=== PATIENT | male | born 1960 | race Caucasian/White ===

== ENCOUNTER 2019-07-07 07:01 | Inpatient (IN) | payer SELFPAY ==
[2019-07-07 07:36] LABS: #Basophils 0.1 thou/uL (0.0-0.2); #Eosinphils 0.1 thou/uL (0.0-0.7); #Lymphocytes 2.2 thou/uL (1.20-3.40); #Monocytes 0.8 thou/uL (0.11-0.59); #Neutrophils 7.1 thou/uL (1.40-6.50); %Basophils 0.7 % (0.0-1.0); %Eosinophils 0.9 % (0.0-10.0); %Lymphocytes 21.4 % (21.0-51.0); %Monocytes 7.4 % (0.0-10.0); %Neutrophils 69.5 % (42.0-75.0); Hemoglobin 15.1 g/dL (14.0-18.0); Mean Corpuscular HGB CONC 34.2 g/dL (32.0-36.0); Mean Corpuscular Hemoglobin 28.4 pg (27.0-31.0); Mean Platelet Volume 9.8 fL (7.4-10.4); Platelet Count 189 thou/uL (130-400); RBC Distribution Width 13.1 % (11.5-14.5); Red Blood Cell (RBC) Count 5.32 mill/uL (4.70-6.10); White Blood Cell (WBC) Count 10.3 thou/uL (4.8-10.8)
--- NOTE | 2019-07-07 08:38 | CT ---
Head CT without contrast 07/07/2019: Comparison: None HISTORY: Fall, trauma, pain TECHNIQUE: Axial CT imaging at 5 mm intervals from vertex through skull base without contrast FINDINGS: Imaged paranasal sinuses and mastoid air cells are well aerated. There is atherosclerotic c alcification of the cavernous carotid arteries and the distal vertebral arteries. No intracranial hemorrhage, midline shift, mass effect, or ventricular enlargement. No displaced calvarial fracture. IMPRESSION: No acute findings.
[2019-07-07] MEDS ORDERED: Aspirin 325 mg Enteric Coated Tablet PO SCH (09:00)
[2019-07-07 09:16] LABS: Albumin 4.3 g/dL (3.5-5.0)
[2019-07-07 09:17] LABS: Chloride 104 mmol/L (98-107); Potassium 4.5 mmol/L (3.5-5.1); Sodium 134 mmol/L (136-145)
[2019-07-07 09:18] LABS: Calcium 9.9 mg/dL (7.8-10.44); Glucose 300 mg/dL (70-105)
[2019-07-07 09:19] LABS: Protein, Total 7.3 g/dL (6.0-8.3)
--- NOTE | 2019-07-07 09:19 | RAD ---
EXAM: Portable chest PROVIDED CLINICAL HISTORY: Chest pain COMPARISON: 02/27/2011 FINDINGS: Cardiac and mediastinal silhouette is within normal limits. No focal consolidation, pleural fluid or pneumothorax evident. IMPRESSION: No evidence for an acute cardiopulmonary process.
[2019-07-07 09:20] LABS: Anion Gap 14 mmol/L (10-20); Bilirubin, Total 0.5 mg/dL (0.2-1.2); Carbon Dioxide 21 mmol/L (22-29)
[2019-07-07 09:21] LABS: Alkaline Phosphatase 84 U/L (40-110)
[2019-07-07 09:22] LABS: Calc. Creatinine Clearance 0 mL/min (70-130); Estimated GFR-MDRD 66
[2019-07-07 09:23] LABS: BUN (Urea Nitrogen) 24 mg/dL (8.4-25.7)
[2019-07-07 09:24] LABS: ALT (SGPT) 33 U/L (8-55); AST (SGOT) 19 U/L (5-34)
[2019-07-07] MEDS ORDERED: Aspirin Chewable 81 MG TAB ONE (09:50)
--- NOTE | 2019-07-07 10:05 | PDOC.FPRHP ---
- History of Present Illness Chief Complaint: left-sided weakness, falls History of Present Illness: Pt reports he woke up George morning and noticed he had "no control of his left arm or leg." L upper and lower weakness. Today he fell over his toilet and hit his right ribs. No LOC, no lightheadedness. He fell again about 1 hour later in his living room and fell on his right side. Denies speech difference. Feels a "little tired." Lives by himself so falls were unwitnessed. L arm has persistent numbness, tingling for a couple of years now after moving couch w/ his friend. Has not slept for 48 hours. Denies history of stroke. No headache, feels like he has to cough but it hurts his right ribs where he fell. Denies vision changes. Does tell us his last A1C was 12.0. Pt normally takes baby aspirin and says he ran out one week ago. ED Course: attempted to give aspirin but pt choked on water. - Allergies/Adverse Reactions Allergies Allergy/AdvReac Type Severity Reaction Status Date / Time Penicillins Allergy Verified 07/07/19 17:41 - Home Medications Comments: Lisinopril Glyburide Clonidine ? Fluoxetine Melatonin occasionally ASA81 usually reports no statin - History PMHx: DM, HTN, Obesity, Insomnia, Mild depression/anxiety, bilateral carpal tunnel, L eye cataract. PSHx: 2011: appendectomy Cyst cut out of right foot. FHx: Mother dcsd 2 months ago from dementia, DM, [place] w/ CABG Father dcsd of massive heart attack at age 60. Had CABG No children. Social: - lives by self with dog - Smoking: previously 25 yrs ago for less than 1 year. - Chews tobacco, daily since age 13. - Alcohol: occasional, social - Denies illicit drugs PCP: previously [facility], now goes to [facility] due to expense. He is uninsured. - Review of Systems General: reports: fatigue. denies: fever/chills Eyes: denies: eye pain, vision changes Respiratory: reports: cough. denies: shortness of breath Cardiovascular: denies: chest pain, palpitation Gastrointestinal: denies: nausea, vomiting, diarrhea, abdominal pain Genitourinary: denies: dysuria Skin: reports: rashes ("diabetic dermatitis" on LE bilaterally). denies: jaundice Musculoskeletal: reports: pain (ribs right side), swelling (R knee from arthritis), arthritis/arthralgias Neurological: reports: numbness, weakness. denies: syncope, seizure Psychological: reports: anxiety, depression - Vital signs BP: 183/105 HR: 86 RR: 16 Tmax: 98.3 Pox: 98% on RA Wt: 109 kg - Physical Exam Constitutional: NAD, awake, alert and oriented, well developed HEENT: normocephalic and atraumatic, PERRLA, EOMI, conjunctiva clear, no scleral icterus, TM's clear and intact, grossly normal hearing, normal nasal mucosa, MMM, oropharynx clear Heart: RRR, normal S1/S2, no murmurs/rubs/gallops Lungs: CTAB, no respiratory distress Abdomen: soft, non-tender, bowel sounds present Musculoskeletal: normal structure, normal tone Neurological: no focal deficit, CN II-XII intact, normal sensation, other (no facial droop, no aphasia, can understand speech and answer appropriately) -Neurological: Strength in Upper and lower 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 Skin: no rash/lesions Heme/Lymphatic: no unusual bruising or bleeding, no purpura Psychiatric: normal mood and affect, intact recent and remote memory (AxO x4) FMR H&P: Results - Labs Result Diagrams: 07/07/19 07:11 07/07/19 08:56 Lab results: WBC 10.3 thou/uL (4.8-10.8) 07/07/19 07:11 Hgb 15.1 g/dL (14.0-18.0) 07/07/19 07:11 Hct 44.1 % (42.0-52.0) 07/07/19 07:11 MCV 83.0 fL (78.0-98.0) 07/07/19 07:11 Plt Count 189 thou/uL (130-400) 07/07/19 07:11 Neutrophils % 69.5 % (42.0-75.0) 07/07/19 07:11 Sodium 134 mmol/L (136-145) L 07/07/19 08:56 Potassium 4.5 mmol/L (3.5-5.1) 07/07/19 08:56 Chloride 104 mmol/L (98-107) 07/07/19 08:56 Carbon Dioxide 21 mmol/L (22-29) L 07/07/19 08:56 BUN 24 mg/dL (8.4-25.7) 07/07/19 08:56 Creatinine 1.14 mg/dL (0.7-1.3) 07/07/19 08:56 Glucose 300 mg/dL (70-105) H 07/07/19 08:56 Calcium 9.9 mg/dL (7.8-10.44) 07/07/19 08:56 Total Bilirubin 0.5 mg/dL (0.2-1.2) 07/07/19 08:56 AST 19 U/L (5-34) 07/07/19 08:56 ALT 33 U/L (8-55) 07/07/19 08:56 Alkaline Phosphatase 84 U/L (40-110) 07/07/19 08:56 Serum Total Protein 7.3 g/dL (6.0-8.3) 07/07/19 08:56 Albumin 4.3 g/dL (3.5-5.0) 07/07/19 08:56 - EKG Interpretation EKG: NSR, FL 196ms, left axis deviation, left anterior fascicular block - Radiology Interpretation CT scan - head Status: image reviewed by me, report reviewed by me (negative) FMR H&P: A/P - Problem List (1) Tobacco abuse Current Visit: Yes Status: Acute Code(s): Z72.0 - TOBACCO USE (2) CVA (cerebral vascular accident) Current Visit: Yes Status: Acute Code(s): I63.9 - CEREBRAL INFARCTION, UNSPECIFIED (3) HTN (hypertension) Current Visit: Yes Status: Acute Code(s): I10 - ESSENTIAL (PRIMARY) HYPERTENSION (4) Diabetes type 2, uncontrolled Current Visit: Yes Status: Acute Code(s): E11.65 - TYPE 2 DIABETES MELLITUS WITH HYPERGLYCEMIA - Plan 58-yo male admitted for left-sided weakness and fall: CVA - CT head negative, outside window for any immediate therapeutic treatment like tPA since symptoms started Tuesday morning, - MRI ordered and showed olya infarct - PT/OT/speech consulted through Stroke Team - Neuro consulted - ASA81 and statin started - Lipid panel ordered - ECHO ordered T2DM, uncontrolled -A1C = 13. -Started on NPH due to being uninsured: 7U subq BID. -continue humalog sliding scale and hypoglycemia protocol HTN - elevated today, normally takes lisinopril although he does not have his medication list with him - started lisinopril 10mg qhs to control BP. Pt is outside the 24 hr window of permissive HTN. Fall and bruised ribs - CXR neg for fracture, pain control w/ Tylenol Tobacco abuse - chewing tobacco for many years, counseled on cessation Code: DNR-DNI Fluids: none VTE PPx: LVX GI PPx: none Activity ambulate w/ assist, fall precautions Disposition/LOS: Admit to stroke inpatient. LOS > 48H FMR H&P: Upper Level - Plan Date/Time: 07/07/19 1005 Mr. Capone is a 58 yo M with PMH DM, HTN presented to ED via EMS s/p fall on the toilet today. Reports right rib pain from fall. Notes L sided weakness that began yesterday morning. He went about daily activity despite this weakness. Denies CP, SOB. Notes last A1c was 12, on oral medication but patient unsure which ones. Given ASA in ED. No prior TIA/CVA. Current smoker. CXR neg CT brain negative MRI brain: acute R pontine infarction measuring 9x1.5mm EKG NSR, L anterior fascicular block PE Gen: NAD Resp: CTAB, no bruising over ribs Heart: RRR, no murmur Neuro: CN intact. Normal speech. R side 5/5 muscle strength. LUE and LLE 4/5. Sensation intact. A/P Ischemic CVA - Given aspirin in ED - Continue aspirin and start Plavix - Start high intensity statin - Echo pending - PT/OT/speech consulted DM, uncontrolled - Unsure of home meds, will need to pharmacy. Will start metformin if not already taking - A1c 13.1 - Start insulin, since uninsured will start NPH 7 units BID with SSI and titrate as needed HTN - Takes Lisinopril at home, restarted but needs med rec to verify dose - BP elevated in 180s on admission, out of window for permissive HTN TERI vs CKD -GFR of 66, unknown baseline -will monitor on am labs Rib pain - No fractures on CXR, tylenol prn - incentive spirometry Ppx: Lovenox Code: DNR Dispo: Admit to inpatient stroke for further workup. Rehab screen for possible placement. I, Flores Hernandez, have evaluated this patient and agree with findings/plan as outlined by internet marketing strategist resident. Pertinent changes/additions are listed here. Addendum - Attending - Attending Attestation Date/Time: 07/07/19 8660 I personally evaluated the patient and discussed the management with Dr. Knowles /David. I agree with the History, Examination, Assessment and Plan documented above with any addition or exceptions noted below. Patient with history of HTN, DM, and tobacco abuse here with 2 days of L sided weakness, gait instability, and mild slurred speech per family. The patient reports symptoms began upon waking up on the day prior to admission. Reports multiple falls due to his instability. Reports L arm and leg "heaviness" and weakness. Denies headache, vision changes, confusion. He has never had this before. Came in 1 day after symptom onset due to no improvement and continued falls. CT brain showed small vessel disease, and MRI has shown midline pontine infarct. Patient diagnosed with acute ischemic CVA. Will start on ASA and Plavix. Statin therapy. Will need insulin therapy due to his poor glycemic control. Control BP as has been >24 hours since symptom onset. Stroke team and neuro consults. Obtain TTE. Further mgmt per clinical course, hopeful d/c to rehab once stable.
[2019-07-07] MEDS ORDERED: Ondansetron PF 4 MG/2 ML Vial IVP PRN (10:55)
[2019-07-07] MEDS ORDERED: Ondansetron ODT 4 MG TAB PO PRN (10:55)
[2019-07-07] MEDS ORDERED: Dextrose 5% in Water 1,000 ML IV PRN (11:03)
[2019-07-07] MEDS ORDERED: Dextrose 50% Abboject 50 ML SYRINGE SLOW IVP PRN (11:03)
[2019-07-07] MEDS ORDERED: HumaLOG 300 UNITS/3 ML VIAL SC PRN (11:03)
--- NOTE | 2019-07-07 12:05 | MRI ---
Brain MRI without contrast: 07/07/2019 COMPARISON: None HISTORY: Numbness and weakness, assess for acute infarction TECHNIQUE: Multiplanar multisequence MR imaging of the brain obtained without contrast FINDINGS: The regional bone marrow signal intensity appears within normal limits. Arterial flow voids at the axial level of the skull base appear grossly unremarkable on the T2-weight ed imaging. The axial gradient echo imaging demonstrates no evidence for intracranial hemorrhage. Acute infarction noted within the olya centrally and anteriorly to the right of midline measuring up to 9 mm transverse dimension and 1.5 cm AP dimension. Foci of scattered subcentimeter deep and periventricular white matter hyperintensity suggests mild sm all vessel disease. There is increased T2 and FLAIR signal in the area of above-described acute pontine infarction on the right. IMPRESSION: Acute right-sided pontine infarction.
[2019-07-07 12:35] LABS: Hemoglobin A1c 13.1 % (4.0-6.0)
[2019-07-07 12:39] LABS: Cardiac Risk 6.3 (Less than 4.5)
[2019-07-07] MEDS: Enoxaparin Sodium 40 MG/0.4 ML SYRINGE SC SCH (15:33)
[2019-07-07 15:48] VITALS: BMI 32.8
[2019-07-07 16:06] LABS: Prothrombin Time 12.7 SEC (12.0-14.7)
[2019-07-07 16:23] LABS: Troponin I 0.019 ng/mL (< 0.028)
[2019-07-07] MEDS: Acetaminophen 325 MG TAB PO PRN ×2 (17:48→21:29)
[2019-07-07] MEDS: HumaLOG 300 UNITS/3 ML VIAL SC PRN (17:48)
[2019-07-07 19:41] LABS: Troponin I Less than 0.010 ng/mL (< 0.028)
[2019-07-07] MEDS: Lisinopril 10 MG TAB PO SCH (20:25)
[2019-07-07] MEDS: Atorvastatin Calcium 40 MG TAB PO SCH (20:25)
[2019-07-07] MEDS ORDERED: NPH, Human Insulin Isophane 300 UNIT/3 ML VIAL SC SCH (21:00)
[2019-07-07] MEDS ORDERED: Insulin Glargine 14 UNITS in Pre-Filled Syringe 1 EACH SC SCH (21:00)
[2019-07-08 05:16] LABS: #Basophils 0.1 thou/uL (0.0-0.2); #Eosinphils 0.2 thou/uL (0.0-0.7); #Lymphocytes 3.4 thou/uL (1.20-3.40); #Monocytes 0.8 thou/uL (0.11-0.59); #Neutrophils 4.3 thou/uL (1.40-6.50); %Basophils 0.6 % (0.0-1.0); %Lymphocytes 39.1 % (21.0-51.0); %Monocytes 8.8 % (0.0-10.0); %Neutrophils 49.5 % (42.0-75.0); Hemoglobin 14.4 g/dL (14.0-18.0); Mean Corpuscular HGB CONC 33.1 g/dL (32.0-36.0); Mean Corpuscular Hemoglobin 27.4 pg (27.0-31.0); Mean Corpuscular Volume 82.8 fL (78.0-98.0); Mean Platelet Volume 9.1 fL (7.4-10.4); Platelet Count 185 thou/uL (130-400); RBC Distribution Width 13.1 % (11.5-14.5); Red Blood Cell (RBC) Count 5.24 mill/uL (4.70-6.10); White Blood Cell (WBC) Count 8.8 thou/uL (4.8-10.8)
[2019-07-08 05:20] LABS: Anion Gap 13 mmol/L (10-20); BUN (Urea Nitrogen) 20 mg/dL (8.4-25.7); Calc. Creatinine Clearance 123 mL/min (70-130); Calcium 9.3 mg/dL (7.8-10.44); Carbon Dioxide 24 mmol/L (22-29); Chloride 102 mmol/L (98-107); Estimated GFR-MDRD 75; Glucose 231 mg/dL (70-105); Potassium 3.7 mmol/L (3.5-5.1); Sodium 135 mmol/L (136-145)
[2019-07-08] MEDS: Acetaminophen 325 MG TAB PO PRN ×2 (05:45→21:37)
[2019-07-08] MEDS: HumaLOG 300 UNITS/3 ML VIAL SC PRN ×3 (06:03→17:16)
--- NOTE | 2019-07-08 06:27 | PDOC.FM ---
- Subjective Subjective: Pt had headache this AM. Reports pain controlled on Tylenol. Still has inspiratory rib pain where he fell. Complains of shooting pain in his left foot , otherwise has been eating/drinking without problem. States brother can bring his med list in today. - Objective MAR Reviewed: Yes Vital Signs & Weight: Vital Signs (12 hours) Temp Pulse Resp BP Pulse Ox 07/08/19 05:24 96 07/08/19 04:00 97.8 F 75 18 144/86 H 96 07/08/19 00:00 97.3 F L 86 12 125/73 95 07/07/19 20:00 97 07/07/19 19:30 98.7 F 88 13 158/84 H 98 Weight Weight 109.724 kg I&O: 07/06/19 07/07/19 07/08/19 06:59 06:59 06:59 Output Total 350 Balance -350 Result Diagrams: 07/08/19 04:38 07/08/19 04:38 Phys Exam - Physical Examination Constitutional: NAD Respiratory: no wheezing, clear to auscultation bilateral Cardiovascular: RRR, no significant murmur Gastrointestinal: soft, non-tender, no distention, positive bowel sounds Musculoskeletal: no edema, pulses present (left foot appears normal) Psychiatric: normal affect, A&O x 3 Dx/Plan (1) Tobacco abuse Code(s): Z72.0 - TOBACCO USE Status: Acute (2) CVA (cerebral vascular accident) Code(s): I63.9 - CEREBRAL INFARCTION, UNSPECIFIED Status: Acute (3) HTN (hypertension) Code(s): I10 - ESSENTIAL (PRIMARY) HYPERTENSION Status: Acute (4) Diabetes type 2, uncontrolled Code(s): E11.65 - TYPE 2 DIABETES MELLITUS WITH HYPERGLYCEMIA Status: Acute - Plan Plan: 58-yo male admitted for left-sided weakness and fall: CVA, olya infarct. - CT head negative, outside window for any immediate therapeutic treatment like tPA since symptoms started Tuesday morning, - MRI ordered and showed olya infarct - PT/OT/speech consulted through Stroke Team - Neuro consulted - ASA81 and statin started - Lipid panel: high TG, high cholesterol - ECHO ordered T2DM, uncontrolled -A1C = 13. -Started on NPH due to being uninsured: 7U subq BID. -continue humalog sliding scale and hypoglycemia protocol HTN - elevated today, normally takes lisinopril although he does not have his medication list with him - states today he takes lisinopril 20mg BID, but is not really sure. - started lisinopril 10mg qhs to control BP. Pt is outside the 24 hr window of permissive HTN. Fall and bruised ribs - CXR neg for fracture, pain control w/ Tylenol Tobacco abuse - chewing tobacco for many years, counseled on cessation HLD - on statin, high intensity, atorvastatin 40 qhs Code: DNR-DNI Fluids: none VTE PPx: LVX GI PPx: none Activity ambulate w/ assist, fall precautions Disposition/LOS: Admit to stroke inpatient. LOS > 48H Addendum - Attending - Attending Attestation Date/Time: 07/08/19 8030 I personally evaluated the patient and discussed the management with Dr. Knowles. I agree with the History, Examination, Assessment and Plan documented above with any addition or exceptions noted below. Patient here for acute pontine infarct with L sided deficits. Continues HTN and DM control, escalate insulin therapy today. On ASA and Plavix. Neuro on board. Continue therapy services and determine proper dispo.
[2019-07-08] MEDS: Aspirin 81 mg Enteric Coated Tablet PO SCH (08:58)
[2019-07-08] MEDS: Enoxaparin Sodium 40 MG/0.4 ML SYRINGE SC SCH (08:58)
[2019-07-08] MEDS ORDERED: Clopidogrel Bisulfate 75 MG TAB PO SCH (09:00)
[2019-07-08] MEDS: NPH, Human Insulin Isophane 300 UNIT/3 ML VIAL SC SCH ×2 (09:03→21:39)
--- NOTE | 2019-07-08 09:40 | CON ---
DATE OF CONSULTATION: 07/08/2019 CONSULTING PHYSICIAN: [facility]. IMPRESSION: 1. Pontine stroke. 2. Diabetes. PLAN: 1. Restart aspirin. 2. Continue Lipitor 40 mg per day. 3. Carotid ultrasound. 4. Rehab screening. HISTORY OF PRESENT ILLNESS: Mr. Capone is a 58-year-old man with a known history of diabetes. He had been on aspirin daily until about 2 weeks ago, he ran out of medication. He developed acute onset of left-sided clumsiness and numbness. It is not associated with a headache, nausea, vomiting, vertigo, double vision, or alteration of consciousness. Initial CT did not show any bleed. MRI of the brain confirmed a pontine infarct. He has had an echocardiogram done, but the results are pending. He denies any prior stroke symptoms. He has no cardiac history. He uses smokeless tobacco. MEDICATIONS: 1. Glucagon. 2. Insulin. ALLERGIES: PENICILLIN. SOCIAL HISTORY: Smokeless tobacco use. FAMILY HISTORY: Noncontributory. REVIEW OF SYSTEMS: Ten-system review of systems is otherwise negative. PHYSICAL EXAMINATION: VITAL SIGNS: Blood pressure 132/78, pulse 79, respirations 16, and temperature 98. HEENT: Pupils are equal and reactive. Conjunctivae clear. Oropharynx clear. NECK: Supple. EXTREMITIES: No cyanosis, clubbing, or edema. NEUROLOGIC: He is alert and cooperative. His speech was fluent and clear. He has a mild facial droop on the left. There was dysmetria on left to [id number] testing. His physician liaison strength is diminished on the left. He has subjective decreased sensation in the left hand and lower leg. His gait is unsteady. LABORATORY STUDIES: Unremarkable CBC, coags, and chemistry other than blood sugars running in the mid 200s. SUMMARY: A 58-year-old man with a lacunar stroke secondary to underlying diabetes. I would restart aspirin. I do not think Plavix is necessary at this point. I agree with the Lipitor. He will likely need inpatient rehab. Job ID: [id number]
[2019-07-08] MEDS: Lisinopril 10 MG TAB PO SCH (21:37)
[2019-07-08] MEDS: Atorvastatin Calcium 40 MG TAB PO SCH (21:37)
[2019-07-09 05:12] LABS: #Eosinphils 0.2 thou/uL (0.0-0.7); #Lymphocytes 2.8 thou/uL (1.20-3.40); #Monocytes 0.7 thou/uL (0.11-0.59); #Neutrophils 4.4 thou/uL (1.40-6.50); %Basophils 0.6 % (0.0-1.0); %Eosinophils 2.6 % (0.0-10.0); %Lymphocytes 34.3 % (21.0-51.0); %Monocytes 8.6 % (0.0-10.0); Mean Corpuscular HGB CONC 33.9 g/dL (32.0-36.0); Mean Corpuscular Hemoglobin 27.9 pg (27.0-31.0); Mean Corpuscular Volume 82.5 fL (78.0-98.0); Mean Platelet Volume 8.9 fL (7.4-10.4); Platelet Count 177 thou/uL (130-400); RBC Distribution Width 12.9 % (11.5-14.5); Red Blood Cell (RBC) Count 5.01 mill/uL (4.70-6.10); White Blood Cell (WBC) Count 8.2 thou/uL (4.8-10.8)
[2019-07-09 05:32] LABS: Anion Gap 12 mmol/L (10-20); BUN (Urea Nitrogen) 19 mg/dL (8.4-25.7); Calc. Creatinine Clearance 132 mL/min (70-130); Calcium 9.2 mg/dL (7.8-10.44); Carbon Dioxide 21 mmol/L (22-29); Chloride 105 mmol/L (98-107); Estimated GFR-MDRD 81; Glucose 200 mg/dL (70-105); Potassium 3.8 mmol/L (3.5-5.1); Sodium 134 mmol/L (136-145)
--- NOTE | 2019-07-09 05:49 | PDOC.FM ---
- Subjective Subjective: Pt states he feels "the same" as yesterday. He is tired. PT came to work with him yesterday and he says he ambulated in the halls. - Objective MAR Reviewed: Yes Vital Signs & Weight: Vital Signs (12 hours) Temp Pulse Resp BP BP Pulse Ox 07/09/19 04:00 97.7 F 71 16 148/95 H 94 L 07/08/19 23:35 97.9 F 99 16 154/108 H 96 07/08/19 21:37 175/94 H 07/08/19 19:28 99.3 F 77 16 161/92 H 97 Weight Weight 109.724 kg I&O: 07/07/19 07/08/19 07/09/19 06:59 06:59 06:59 Intake Total 1140 Output Total 350 Balance -350 1140 Result Diagrams: 07/09/19 05:02 07/09/19 05:02 Phys Exam - Physical Examination Constitutional: NAD Respiratory: no wheezing, clear to auscultation bilateral Cardiovascular: RRR, no significant murmur Musculoskeletal: no edema Dx/Plan (1) Tobacco abuse Code(s): Z72.0 - TOBACCO USE Status: Acute (2) CVA (cerebral vascular accident) Code(s): I63.9 - CEREBRAL INFARCTION, UNSPECIFIED Status: Acute (3) HTN (hypertension) Code(s): I10 - ESSENTIAL (PRIMARY) HYPERTENSION Status: Acute (4) Diabetes type 2, uncontrolled Code(s): E11.65 - TYPE 2 DIABETES MELLITUS WITH HYPERGLYCEMIA Status: Acute - Plan Plan: 58-yo male admitted for left-sided weakness and fall: CVA, olya infarct. - CT head negative, outside window for any immediate therapeutic treatment like tPA since symptoms started Tuesday morning, - MRI ordered and showed olya infarct - PT/OT/speech consulted through Stroke Team - Neuro consulted, appreciate recs - ASA81 and statin started - Lipid panel: high TG, high cholesterol - ECHO w/ normal EF, diastolic dysfunction. - Carotid U/S per Neuro. T2DM, uncontrolled -A1C = 13. -Started on NPH due to being uninsured: 10U subq BID. Continue to titrate to effective dose -continue humalog sliding scale and hypoglycemia protocol HTN - elevated today, normally takes lisinopril although he does not have his medication list with him - states today he takes lisinopril 20mg BID, but is not really sure. - started lisinopril 10mg qhs to control BP. Pt is outside the 24 hr window of permissive HTN. Fall and bruised ribs - CXR neg for fracture, pain control w/ Tylenol Tobacco abuse - chewing tobacco for many years, counseled on cessation HLD - on statin, high intensity, atorvastatin 40 qhs Code: DNR-DNI Fluids: none VTE PPx: LVX GI PPx: none Activity ambulate w/ assist, fall precautions Addendum - Attending - Attending Attestation Date/Time: 07/09/19 3970 I personally evaluated the patient and discussed the management with Dr. Knowles. I agree with the History, Examination, Assessment and Plan documented above with any addition or exceptions noted below. Patient doing well. Needs continued BP control and DM control. Escalate therapy today. Continue PT and work with [facility] for [facility]. Carotid dopplers negative. Neuro on board. On ASA and statin therapy.
[2019-07-09] MEDS: HumaLOG 300 UNITS/3 ML VIAL SC PRN ×3 (06:37→18:04)
[2019-07-09] MEDS ORDERED: metFORMIN 500 MG TAB PO SCH ×2 (09:08→09:30)
--- NOTE | 2019-07-09 09:11 | ULT ---
US Carotid Doppler STANDARD History: Stroke Comparison: None. Findings: Real-time grayscale, color, and spectral analysis of the extracranial carotid and vertebral arteries was performed. No elevated peak systolic velocities within the internal carotid arteries. Antegrade flow both verteb ral arteries. Impression: No hemodynamically significant stenosis.
[2019-07-09] MEDS: NPH, Human Insulin Isophane 300 UNIT/3 ML VIAL SC SCH ×3 (09:45→21:52)
[2019-07-09] MEDS: Enoxaparin Sodium 40 MG/0.4 ML SYRINGE SC SCH (09:55)
[2019-07-09] MEDS: Aspirin 81 mg Enteric Coated Tablet PO SCH (09:55)
[2019-07-09] MEDS: metFORMIN 500 MG TAB PO SCH (16:08)
[2019-07-09] MEDS ORDERED: Lisinopril 10 MG TAB PO SCH ×2 (21:00)
[2019-07-09] MEDS ORDERED: Lisinopril 20 MG TAB PO SCH (21:00)
[2019-07-09] MEDS ORDERED: Polyethylene Glycol 3350 17 GM Packet PO SCH (21:30)
[2019-07-09] MEDS: Atorvastatin Calcium 40 MG TAB PO SCH (21:48)
[2019-07-10] MEDS ORDERED: NPH, Human Insulin Isophane 300 UNIT/3 ML VIAL SC SCH (05:57)
--- NOTE | 2019-07-10 06:02 | PDOC.FM ---
- Subjective Subjective: Pt denies pain this AM. Did not sleep well, just couldn't fall asleep. Reports therapy is going well. No questions today. - Objective MAR Reviewed: Yes Vital Signs & Weight: Vital Signs (12 hours) Temp Pulse Resp BP BP Pulse Ox 07/10/19 04:00 98 F 86 16 135/84 96 07/09/19 23:29 98.2 F 96 18 165/96 H 98 07/09/19 21:49 143/93 H 07/09/19 20:30 99 07/09/19 19:25 98.2 F 108 H 18 143/93 H 99 Weight Weight 109.724 kg I&O: 07/08/19 07/09/19 07/10/19 06:59 06:59 06:59 Intake Total 1140 890 Output Total 350 Balance -350 1140 890 Result Diagrams: 07/09/19 05:02 07/09/19 05:02 Phys Exam - Physical Examination Constitutional: NAD Respiratory: no wheezing, clear to auscultation bilateral Cardiovascular: RRR Musculoskeletal: no edema Psychiatric: normal affect, A&O x 3 Dx/Plan (1) Tobacco abuse Code(s): Z72.0 - TOBACCO USE Status: Acute (2) CVA (cerebral vascular accident) Code(s): I63.9 - CEREBRAL INFARCTION, UNSPECIFIED Status: Acute (3) HTN (hypertension) Code(s): I10 - ESSENTIAL (PRIMARY) HYPERTENSION Status: Acute (4) Diabetes type 2, uncontrolled Code(s): E11.65 - TYPE 2 DIABETES MELLITUS WITH HYPERGLYCEMIA Status: Acute - Plan Plan: 58-yo male admitted for left-sided weakness and fall: CVA, olya infarct. - CT head negative, outside window for any immediate therapeutic treatment like tPA since symptoms started Tuesday morning - MRI ordered and showed olya infarct - PT/OT/speech consulted through Stroke Team - Neuro consulted, appreciate recs - ASA81 and statin started - Lipid panel: high TG, high cholesterol - ECHO w/ normal EF, diastolic dysfunction. - Carotid U/S: normal T2DM, uncontrolled -A1C = 13. -Started on NPH due to being uninsured: 15U subq BID. Continue to titrate to effective dose -Metformin 500 BID-WM started -continue humalog sliding scale and hypoglycemia protocol HTN - elevated today, normally takes lisinopril although he does not have his medication list with him - states today he takes lisinopril 20mg BID, but is not really sure. Will continue to titrate - lisinopril 20mg qhs to control BP. Pt is outside the 24 hr window of permissive HTN. Fall and bruised ribs - CXR neg for fracture, pain control w/ Tylenol Tobacco abuse - chewing tobacco for many years, counseled on cessation HLD - on statin, high intensity, atorvastatin 40 qhs Code: DNR-DNI Fluids: none VTE PPx: LVX GI PPx: none Activity ambulate w/ assist, fall precautions Dispo: inpatient stroke. Pt is uninsured. Awaiting to hear from rehab [facility]. [facility] consulted through case mgmt. If unable to go to rehab, pt may be discharged home w/ medication financial assistance. Med assistance is pending today. He follows w/ [facility] so unsure if they will have his insulin in stock. Addendum - Attending - Attending Attestation Date/Time: 07/10/19 1121 I personally evaluated the patient and discussed the management with Dr. Knowles. I agree with the History, Examination, Assessment and Plan documented above with any addition or exceptions noted below. Patient here post CVA. He is doing well. BP improved and blood sugars improved. He will be discharged on insulin therapy, ASA, and statin. He has been declined for rehab and so [facility] is our best option. He is overall stable for discharge and will likely be going home today.
[2019-07-10] MEDS: HumaLOG 300 UNITS/3 ML VIAL SC PRN ×2 (06:35→11:52)
[2019-07-10] MEDS: Enoxaparin Sodium 40 MG/0.4 ML SYRINGE SC SCH (08:58)
[2019-07-10] MEDS: Aspirin 81 mg Enteric Coated Tablet PO SCH (08:58)
[2019-07-10] MEDS: metFORMIN 500 MG TAB PO SCH (08:58)
[2019-07-10] MEDS ORDERED: FLUoxetine HCl 10 MG CAP PO SCH (09:30)
[2019-07-10 11:31] VITALS: BP 133/77; TEMP 98.9
[2019-07-10 11:47] LABS: Glucose 188 mg/dL (70-105)
--- NOTE | 2019-07-10 13:23 | PDOC.BPN ---
- Brief Progress Note Called pt's Brother Jose at [phone] and he confirmed pt has money source from which he can pay for his medications. Also confirmed he can come to town in about one hour and provide the transportation for a ride for the patient upon discharge. Pt also has been approved through [facility]. With this information knowing the pt will have medications and PT/OT/Speech after his stroke, I will discharge the pt.
[2019-07-10] MEDS ORDERED: Lisinopril 20 MG TAB PO SCH (21:00)
[2019-07-11] MEDS ORDERED: FLUoxetine HCl 10 MG CAP PO SCH (09:00)
== END 2019-07-10 14:25 | disposition home health service (06) | DRG 65 ==
LOC: ERS 07:01 → 2SE 10:28 → OBSVTOIN 10:28
PROVIDERS: ADMIT Student in an Organized Health Care Education/Training Program; ATTEND Student in an Organized Health Care Education/Training Program
DX: I63.9 Cerebral infarction, unspecified (principal); G81.94 Hemiplegia, unspecified affecting left nondominant side; S20.212A Contusion of left front wall of thorax, initial encounter; W01.10XA Fall on same level from slipping, tripping and stumbling with subsequent striking against unspecified object, initial encounter; I10 Essential (primary) hypertension; E66.9 Obesity, unspecified; F32.9 Major depressive disorder, single episode, unspecified; F41.9 Anxiety disorder, unspecified; Z66 Do not resuscitate; E11.65 Type 2 diabetes mellitus with hyperglycemia; R40.2412 Glasgow coma scale score 13-15, at arrival to emergency department; Y92.002 Bathroom of unspecified non-institutional (private) residence as the place of occurrence of the external cause; Z88.0 Allergy status to penicillin; Z98.42 Cataract extraction status, left eye; Z90.49 Acquired absence of other specified parts of digestive tract; Z87.891 Personal history of nicotine dependence; Z68.32 Body mass index [BMI] 32.0-32.9, adult
CPT/HCPCS: 36415; 36416; 70450; 70551; 71045; 80048; 80053; 80061; 82947; 83036; 84484; 85025; 85610; 93005; 93306; 93880; J1650; J1815

== ENCOUNTER 2020-06-04 23:22 | Inpatient (IN) | payer OTHER ==
[2020-06-05] MEDS ORDERED: Dextrose 5% in Water 1,000 ML IV PRN (01:17)
[2020-06-05] MEDS ORDERED: HumaLOG 300 UNITS/3 ML VIAL SC PRN (01:17)
[2020-06-05] MEDS ORDERED: Dextrose 50% Abboject 50 ML SYRINGE SLOW IVP PRN (01:17)
[2020-06-05 01:45] VITALS: BMI 30.2
--- NOTE | 2020-06-05 01:51 | PDOC.EVN ---
Event Note - Event Note Event Note: [id number] HP dictated
--- NOTE | 2020-06-05 02:02 | PDOC.EVN ---
Event Note - Event Note Event Note: [id number] dictated
[2020-06-05] MEDS ORDERED: Azithromycin 500 MG in Sodium Chloride 0.9% 250 ML 250 ML IVPB SCH ×2 (02:30→20:00)
--- NOTE | 2020-06-05 02:37 | HP ---
CHIEF COMPLAINT: Shortness of breath and weakness. HISTORY OF PRESENT ILLNESS: Mr. Capone is a 59-year-old male with past medical history of diabetes mellitus, hypertension, CVA with residual left-sided weakness, with recent diagnosis of COVID-19 virus infection, presented to the emergency room with worsening shortness of breath, generalized weakness. The patient was recently discharged from the hospital four days ago for diabetic ketoacidosis. The patient had chest x-ray that was consistent with COVID-19 pneumonia and was tested positive at that time. The patient's condition got worse. He fell today because of being too weak. He has a history of CVA and reports he is generally weak on the left side and has difficulty walking. On workup in the emergency room, the patient was found to have low oxygen saturation in the 80s. Placed on nasal cannula. CTA of the chest was negative for PE, but worsening infiltrate/prior pneumonia. In the emergency room, the patient was given IV dexamethasone. The patient also was found to have elevated troponin of 0.29. He was given subcutaneous Lovenox and aspirin. The patient is being admitted to hospital for further management. PAST MEDICAL HISTORY: 1. Diabetes mellitus. 2. Hypertension. 3. CVA with left-sided weakness. PAST SURGICAL HISTORY: 1. Appendectomy. 2. Cyst removed from the foot. PAST PSYCHIATRIC HISTORY: Depression. SOCIAL HISTORY: Denies drug use. Currently uses tobacco. Denies alcohol drinking. FAMILY HISTORY: Reviewed and noncontributory. ALLERGIES: ALLERGIC TO PENICILLIN. HOME MEDICATIONS: Please see home medication reconciliation form for updated medications. REVIEW OF SYSTEMS: Review of 14 systems negative except what is mentioned in history of present illness. PHYSICAL EXAMINATION: GENERAL: The patient is awake, alert, in moderate distress. VITAL SIGNS: Blood pressure 117/81, pulse is 92, respiratory rate is 24, and temperature 98.7. HEAD AND NECK: Normocephalic and atraumatic. Neck is supple. CHEST: Coarse bilateral breath sounds. RESPIRATIONS: Labored. HEART: S1 and S2. Regular. ABDOMEN: Soft. Bowel sounds present. NEUROLOGIC: Awake, alert, with left-sided weakness. EXTREMITIES: No clubbing. No cyanosis. GENITOURINARY: No suprapubic tenderness. No flank tenderness. LABORATORY DATA: WBC 11.6, hemoglobin 12.3, platelets 411. Lactic acid 2.4. Repeat lactic acid 1.3. Creatinine is 1.96, baseline around 3, glucose is 202. Troponin 0.29. Repeat troponin 0.22. ASSESSMENT: 1. Acute hypoxic respiratory failure. 2. COVID-19 virus pneumonia. 3. Diabetes mellitus with hyperglycemia. 4. Hypertension. 5. History of cerebrovascular accident with residual left-sided weakness. 6. Elevated troponin/yhz-HH-mzffglskv myocardial infarction. 7. Chronic kidney disease. PLAN: 1. Admit. 2. Oxygen to keep saturation more than 92%. 3. IV dexamethasone. 4. Monitor and control blood glucose. We will place the patient on insulin, basal and sliding scale with short-acting coverage. 5. Serial troponins. 6. Aspirin. 7. Anticoagulation. The patient is on Lovenox. 8. Consider Cardiology consultation in a.m. for evaluation and further recommendations. 9. Reconcile home medications. 10. DVT prophylaxis. The patient is on anticoagulation. Continue with Lovenox for now. 11. Expected length of stay, 2 midnights or more. Job ID: [id number]
[2020-06-05 05:52] LABS: Troponin I 0.199 ng/mL (< 0.028)
[2020-06-05] MEDS: FLUoxetine HCl 10 MG CAP PO SCH (08:59)
[2020-06-05] MEDS: Enoxaparin Sodium 40 MG/0.4 ML SYRINGE SC SCH ×2 (08:59→20:58)
[2020-06-05] MEDS: Aspirin 81 mg Enteric Coated Tablet PO SCH (09:00)
[2020-06-05] MEDS ORDERED: FLU VACC QS2020-21(6MOS UP)/PF 60 MCG/0.5 ML SYRINGE IM ONE (09:00)
[2020-06-05] MEDS ORDERED: Insulin Glargine 20 UNITS in Pre-Filled Syringe 1 EACH SC SCH (09:00)
[2020-06-05] MEDS: Famotidine/PF 20 mg/2ml Vial SLOW IVP SCH ×2 (09:01→20:59)
[2020-06-05 09:42] LABS: #Lymphocytes 1.7 thou/uL (1.20-3.40); #Monocytes 0.4 thou/uL (0.11-0.59); #Neutrophils 7.2 thou/uL (1.40-6.50); %Basophils 0.2 % (0.0-1.0); %Eosinophils 0.3 % (0.0-10.0); %Lymphocytes 17.7 % (21.0-51.0); %Monocytes 4.4 % (0.0-10.0); %Neutrophils 77.5 % (42.0-75.0); Mean Corpuscular HGB CONC 33.3 g/dL (32.0-36.0); Mean Corpuscular Hemoglobin 27.3 pg (27.0-31.0); Mean Corpuscular Volume 81.9 fL (78.0-98.0); Mean Platelet Volume 7.4 fL (7.4-10.4); Platelet Count 349 thou/uL (130-400); Red Blood Cell (RBC) Count 4.04 mill/uL (4.70-6.10); White Blood Cell (WBC) Count 9.3 thou/uL (4.8-10.8)
[2020-06-05 10:01] LABS: Anion Gap 18 mmol/L (10-20); BUN (Urea Nitrogen) 54 mg/dL (8.4-25.7); Calc. Creatinine Clearance 66 mL/min (70-130); Calcium 8.6 mg/dL (7.8-10.44); Carbon Dioxide 18 mmol/L (22-29); Chloride 101 mmol/L (98-107); Estimated GFR-MDRD 40; Glucose 230 mg/dL (70-105); Potassium 4.5 mmol/L (3.5-5.1); Sodium 132 mmol/L (136-145)
[2020-06-05] MEDS: NPH, Human Insulin Isophane 300 UNIT/3 ML VIAL SC SCH ×2 (10:37→21:18)
[2020-06-05] MEDS: HumaLOG 300 UNITS/3 ML VIAL SC PRN ×2 (12:14→19:11)
--- NOTE | 2020-06-05 13:10 | CON ---
DATE OF CONSULTATION: The patient is a 59 year old gentleman who presented for evaluation of weakness. The patient has previously suffered cerebrovascular accident in June of 2019. This left him with left-sided weakness. The patient underwent an echocardiogram, which revealed normal left ventricular systolic function. Carotid Doppler revealed no evidence of coronary artery disease. The patient was placed on medical therapy. He was in usual state of health when recently presented with DKA. The patient was in the hospital when he had an apparently infected foot. He went home and apparently, was noted to be increasing respiratory distress. He was brought to the hospital for further evaluation. The patient was also found to be COVID positive. The patient has no known cardiac history. The patient denies having any chest discomfort. The patient has several cardiac risk factors including diabetes mellitus, hypertension, and a history of tobacco abuse. PAST MEDICAL HISTORY: 1. CVA. 2. Hypertension. 3. Diabetes mellitus. 4. Dyslipidemia. PAST SURGICAL HISTORY: Appendectomy and cyst removed from his foot. SOCIAL HISTORY: Long history of tobacco abuse. ALLERGIES: PENICILLIN. FAMILY HISTORY: Positive family history of coronary artery disease. PHYSICAL EXAMINATION: This was deferred due to the patient having COVID. LABORATORY RESULTS: Sodium is 132, potassium 4.5, chloride 101, bicarbonate 18, BUN 54, creatinine 1.7, glucose 230. White blood cell count 9.3, hemoglobin 11.0, hematocrit 33.1. Troponin was 0.199. Chest x-ray normal heart size with bilateral infiltrates. IMPRESSION: 1. Indeterminate troponin level. 2. COVID pneumonia. 3. Diabetes mellitus. 4. Cerebrovascular accident. 5. Hypertension. 6. Renal insufficiency. 7. Tobacco abuse. This gentleman presents with COVID positive pneumonia. He was found to have an indeterminate troponin level. The patient is on appropriate cardiac medications including aspirin and Lipitor. The patient is being treated for COVID pneumonia. From a cardiac standpoint when he recovers from his illness,I would recommend outpatient stress testing and an echocardiogram. We will follow this patient with you through his hospitalization. Job ID: [id number] [facility]
[2020-06-05] MEDS: Atorvastatin Calcium 40 MG TAB PO SCH (20:59)
[2020-06-05] MEDS: Lisinopril 20 MG TAB PO SCH ×2 (21:00→21:02)
[2020-06-05] MEDS: Azithromycin 500 MG in Sodium Chloride 0.9% 250 ML 250 ML IVPB SCH (21:05)
[2020-06-06 05:10] LABS: #Eosinphils 0.1 thou/uL (0.0-0.7); #Lymphocytes 1.3 thou/uL (1.20-3.40); #Monocytes 0.7 thou/uL (0.11-0.59); #Neutrophils 8.5 thou/uL (1.40-6.50); %Basophils 0.1 % (0.0-1.0); %Eosinophils 1.2 % (0.0-10.0); %Lymphocytes 11.9 % (21.0-51.0); %Monocytes 6.5 % (0.0-10.0); %Neutrophils 80.3 % (42.0-75.0); Hemoglobin 11.4 g/dL (14.0-18.0); Mean Corpuscular HGB CONC 33.8 g/dL (32.0-36.0); Mean Corpuscular Hemoglobin 27.9 pg (27.0-31.0); Mean Corpuscular Volume 82.6 fL (78.0-98.0); Mean Platelet Volume 7.4 fL (7.4-10.4); Platelet Count 360 thou/uL (130-400); RBC Distribution Width 12.8 % (11.5-14.5); Red Blood Cell (RBC) Count 4.08 mill/uL (4.70-6.10); White Blood Cell (WBC) Count 10.5 thou/uL (4.8-10.8)
[2020-06-06 05:49] LABS: Anion Gap 16 mmol/L (10-20); BUN (Urea Nitrogen) 47 mg/dL (8.4-25.7); Calc. Creatinine Clearance 81 mL/min (70-130); Calcium 9.1 mg/dL (7.8-10.44); Carbon Dioxide 19 mmol/L (22-29); Cardiac Risk 4.6 (Less than 4.5); Chloride 102 mmol/L (98-107); Cholesterol 97 mg/dl (< 200 Desired); Estimated GFR-MDRD 50; Glucose 187 mg/dL (70-105); HDL Cholesterol 21 mg/dL (>60 Neg Risk); LDL Cholesterol, Calculated 36 mg/dL; Potassium 3.8 mmol/L (3.5-5.1); Sodium 133 mmol/L (136-145); Triglycerides 200 mg/dL (Less than 150)
[2020-06-06] MEDS: HumaLOG 300 UNITS/3 ML VIAL SC PRN ×3 (06:40→17:11)
[2020-06-06] MEDS: NPH, Human Insulin Isophane 300 UNIT/3 ML VIAL SC SCH ×2 (09:04→20:13)
[2020-06-06] MEDS: Famotidine/PF 20 mg/2ml Vial SLOW IVP SCH ×2 (09:04→20:13)
[2020-06-06] MEDS: Aspirin 81 mg Enteric Coated Tablet PO SCH (09:04)
[2020-06-06] MEDS: FLUoxetine HCl 10 MG CAP PO SCH (09:05)
[2020-06-06] MEDS: Enoxaparin Sodium 40 MG/0.4 ML SYRINGE SC SCH ×2 (09:06→20:12)
--- NOTE | 2020-06-06 10:36 | PDOC.HOSPP ---
- Subjective Encounter Date: 06/06/20 Subjective: The patient is feeling better today. His oxygenation has improved since yesterday. - Objective Vital Signs & Weight: Vital Signs (12 hours) Temp Pulse Resp BP Pulse Ox 06/06/20 09:06 98.6 F 84 18 113/73 94 L 06/06/20 04:00 98.0 F 88 13 137/89 93 L 06/06/20 00:00 97.4 F L 98 20 117/70 96 Weight Admit Weight 229 lb 9.6 oz Weight 229 lb 9.6 oz I&O: 06/05/20 06/06/20 06/07/20 06:59 06:59 06:59 Intake Total 980 1465 Output Total 1225 Balance 980 240 Result Diagrams: 06/06/20 04:48 06/06/20 04:48 Additional Labs: Accuchecks 06/05/20 06/05/20 06/05/20 21:14 17:46 11:41 POC Glucose 314 H 261 H 258 H Hospitalist ROS - Medication Medications: Active Medications Generic Name Dose Route Start Last Admin Trade Name Freq PRN Reason Stop Dose Admin Aspirin 325 mg 06/05/20 09:00 06/06/20 09:04 Aspirin 81 Mg Enteric Coated Tablet PO 325 mg DAILY YOSSI Administration Atorvastatin Calcium 40 mg 06/05/20 21:00 06/05/20 20:59 Atorvastatin Calcium 40 Mg Tab PO 40 mg HS YOSSI Administration Enoxaparin Sodium 40 mg 06/05/20 09:00 06/06/20 09:06 Enoxaparin Sodium 40 Mg/0.4 Ml Syringe SC 40 mg 0900,2100 YOSSI Administration Famotidine 20 mg 06/05/20 09:00 06/06/20 09:04 Famotidine/Pf 20 Mg/2ml Vial SLOW IVP 20 mg BID YOSSI Administration Fluoxetine HCl 10 mg 06/05/20 09:00 06/06/20 09:05 Fluoxetine Hcl 10 Mg Cap PO 10 mg DAILY YOSSI Administration Azithromycin 500 mg/ Sodium 250 mls @ 250 mls/hr 06/05/20 21:00 06/05/20 21:05 Chloride IVPB 250 mls 2100 YOSSI Administration Insulin Human Lispro 0 units 06/05/20 01:17 06/06/20 06:40 Humalog 300 Units/3 Ml Vial SC 4 unit .MODERATE SLIDING SC PRN Administration Moderate Correctional Scale Insulin Human NPH 25 unit 06/05/20 09:00 06/06/20 09:04 Nph, Human Insulin Isophane 300 Unit/3 Ml Vial SC 25 units BID YOSSI Administration - Exam General Appearance: awake alert ENT: normocephalic atraumatic Neck: supple, no JVD Respiratory: normal chest expansion, no tachypnea, rhonchi Gastrointestinal: soft Extremities: no cyanosis, no clubbing Neurological: cranial nerve grossly intact, no new deficit Hosp A/P (1) COVID-19 Code(s): U07.1 - COVID-19 Status: Acute (2) Acute respiratory failure with hypoxia Code(s): J96.01 - ACUTE RESPIRATORY FAILURE WITH HYPOXIA Status: Acute (3) TERI (acute kidney injury) Code(s): N17.9 - ACUTE KIDNEY FAILURE, UNSPECIFIED Status: Acute (4) DM2 (diabetes mellitus, type 2) Status: Acute (5) History of CVA (cerebrovascular accident) Code(s): Z86.73 - PRSNL HX OF TIA (TIA), AND CEREB INFRC W/O RESID DEFICITS Status: Acute (6) HTN (hypertension) Code(s): I10 - ESSENTIAL (PRIMARY) HYPERTENSION Status: Acute - Plan The patient is now on room air. Her symptoms started more than 10 days ago and thus he did not receive remdesivir. Troponin elevated likely related to his COVID-19 diagnosis. His creatinine level is improving since yesterday. Hold lisinopril and start normal saline at 75 cc/h. Check BMP in the morning. PT and OT evaluation.
[2020-06-06] MEDS: Sodium Chloride 0.9% 1,000 ML IV SCH (12:29)
[2020-06-06] MEDS: Icosapent Ethyl 1 GM CAPSULE PO SCH (20:11)
[2020-06-06] MEDS: Azithromycin 500 MG in Sodium Chloride 0.9% 250 ML 250 ML IVPB SCH (20:12)
[2020-06-06] MEDS: Atorvastatin Calcium 40 MG TAB PO SCH (20:12)
[2020-06-07] MEDS: Sodium Chloride 0.9% 1,000 ML IV SCH ×2 (00:05→04:53)
[2020-06-07 05:10] LABS: #Eosinphils 0.2 thou/uL (0.0-0.7); #Lymphocytes 1.4 thou/uL (1.20-3.40); #Monocytes 0.6 thou/uL (0.11-0.59); #Neutrophils 6.5 thou/uL (1.40-6.50); %Basophils 0.5 % (0.0-1.0); %Eosinophils 1.9 % (0.0-10.0); %Lymphocytes 16.5 % (21.0-51.0); %Monocytes 7.1 % (0.0-10.0); Hemoglobin 10.4 g/dL (14.0-18.0); Mean Corpuscular HGB CONC 33.3 g/dL (32.0-36.0); Mean Corpuscular Hemoglobin 27.6 pg (27.0-31.0); Mean Platelet Volume 7.3 fL (7.4-10.4); Platelet Count 309 thou/uL (130-400); RBC Distribution Width 12.9 % (11.5-14.5); Red Blood Cell (RBC) Count 3.78 mill/uL (4.70-6.10); White Blood Cell (WBC) Count 8.8 thou/uL (4.8-10.8)
[2020-06-07 05:30] LABS: Anion Gap 11 mmol/L (10-20); BUN (Urea Nitrogen) 34 mg/dL (8.4-25.7); Calc. Creatinine Clearance 115 mL/min (70-130); Calcium 8.5 mg/dL (7.8-10.44); Carbon Dioxide 20 mmol/L (22-29); Chloride 104 mmol/L (98-107); Estimated GFR-MDRD 75; Glucose 200 mg/dL (70-105); Sodium 131 mmol/L (136-145)
[2020-06-07] MEDS: NPH, Human Insulin Isophane 300 UNIT/3 ML VIAL SC SCH ×2 (08:04→20:41)
[2020-06-07] MEDS: FLUoxetine HCl 10 MG CAP PO SCH (08:05)
[2020-06-07] MEDS: Aspirin 81 mg Enteric Coated Tablet PO SCH (08:05)
[2020-06-07] MEDS: Famotidine/PF 20 mg/2ml Vial SLOW IVP SCH ×2 (08:06→20:39)
[2020-06-07] MEDS: Enoxaparin Sodium 40 MG/0.4 ML SYRINGE SC SCH ×2 (08:06→20:39)
[2020-06-07] MEDS: Icosapent Ethyl 1 GM CAPSULE PO SCH ×2 (08:06→20:40)
[2020-06-07] MEDS: Dexamethasone 4 MG TAB PO SCH (08:06)
[2020-06-07 08:50] LABS: Glucose 181 mg/dL (70-105)
[2020-06-07 12:29] LABS: Glucose 210 mg/dL (70-105)
[2020-06-07 17:36] LABS: Glucose 286 mg/dL (70-105)
[2020-06-07] MEDS: HumaLOG 300 UNITS/3 ML VIAL SC PRN (17:52)
[2020-06-07] MEDS: Atorvastatin Calcium 40 MG TAB PO SCH (20:38)
[2020-06-08 05:21] LABS: #Lymphocytes 1.5 thou/uL (1.20-3.40); #Monocytes 0.7 thou/uL (0.11-0.59); #Neutrophils 7.6 thou/uL (1.40-6.50); %Basophils 0.3 % (0.0-1.0); %Eosinophils 0.4 % (0.0-10.0); %Lymphocytes 15.5 % (21.0-51.0); %Monocytes 6.7 % (0.0-10.0); %Neutrophils 77.1 % (42.0-75.0); Hemoglobin 10.3 g/dL (14.0-18.0); Mean Corpuscular HGB CONC 33.5 g/dL (32.0-36.0); Mean Corpuscular Hemoglobin 27.7 pg (27.0-31.0); Mean Corpuscular Volume 82.6 fL (78.0-98.0); Mean Platelet Volume 7.7 fL (7.4-10.4); Platelet Count 309 thou/uL (130-400); RBC Distribution Width 12.6 % (11.5-14.5); Red Blood Cell (RBC) Count 3.73 mill/uL (4.70-6.10); White Blood Cell (WBC) Count 9.8 thou/uL (4.8-10.8)
[2020-06-08 05:50] LABS: ALT (SGPT) 71 U/L (8-55); AST (SGOT) 32 U/L (5-34); Albumin 2.9 g/dL (3.5-5.0); Alkaline Phosphatase 138 U/L (40-110); Anion Gap 12 mmol/L (10-20); BUN (Urea Nitrogen) 25 mg/dL (8.4-25.7); Bilirubin, Total 0.3 mg/dL (0.2-1.2); CRP (Inflammatory) 4.18 mg/dL (= or < 0.5); Calc. Creatinine Clearance 152 mL/min (70-130); Calcium 8.8 mg/dL (7.8-10.44); Carbon Dioxide 18 mmol/L (22-29); Chloride 106 mmol/L (98-107); Estimated GFR-MDRD Greater than 90; Globulin 3.5 g/dL (2.4-3.5); Glucose 267 mg/dL (70-105); Potassium 4.4 mmol/L (3.5-5.1); Protein, Total 6.4 g/dL (6.0-8.3); Sodium 132 mmol/L (136-145)
[2020-06-08] MEDS: HumaLOG 300 UNITS/3 ML VIAL SC PRN ×3 (06:31→17:01)
--- NOTE | 2020-06-08 07:43 | PDOC.HOSPP ---
- Subjective Encounter Date: 06/07/20 Encounter Time: 17:00 Subjective: Patient seen and examined for generalized weakness with recent COVID-19. Denies any chest pain or shortness of breath. - Objective Vital Signs & Weight: Vital Signs (12 hours) Temp Pulse Resp BP Pulse Ox 06/08/20 04:15 98 F 65 14 146/69 H 95 06/07/20 23:20 97.4 F L 62 18 134/85 98 06/07/20 20:50 98.1 F 79 18 138/87 95 Weight Admit Weight 229 lb 9.6 oz Weight 240 lb 9.6 oz I&O: 06/07/20 06/08/20 06/09/20 06:59 06:59 06:59 Intake Total 2562 2413 Output Total 1385 1500 Balance 1177 913 Result Diagrams: 06/08/20 04:32 06/08/20 04:32 Additional Labs: Accuchecks 06/08/20 06/07/20 06/06/20 06:33 20:54 03:43 POC Glucose 234 H 297 H 182 H 06/08/20 04:32 06/07/20 04:36: Sodium 131 L, Carbon Dioxide 20 L, BUN 34 H 06/07/20 04:36: RBC 3.78 L, Hgb 10.4 L, Hct 31.4 L, MPV 7.3 L, Lymphocytes % 16.5 L, Monocytes # 0.6 H EKG Reviewed by me: Yes (Sinus rhythm on telemetry) Hospitalist ROS - Review of Systems Cardiovascular: denies: chest pain, palpitations, orthopnea, paroxysmal noc. dyspnea, edema, light headedness, other Gastrointestinal: denies: nausea, vomiting, abdominal pain, diarrhea, constipation, melena, hematochezia, other - Medication Medications: Active Medications Generic Name Dose Route Start Last Admin Trade Name Freq PRN Reason Stop Dose Admin Aspirin 325 mg 06/05/20 09:00 06/07/20 08:05 Aspirin 81 Mg Enteric Coated Tablet PO 325 mg DAILY YOSSI Administration Atorvastatin Calcium 40 mg 06/05/20 21:00 06/07/20 20:38 Atorvastatin Calcium 40 Mg Tab PO 40 mg HS YOSSI Administration Dexamethasone 6 mg 06/07/20 08:00 06/07/20 08:06 Dexamethasone 4 Mg Tab PO 6 mg QAM-WM YOSSI Administration Enoxaparin Sodium 40 mg 06/05/20 09:00 06/07/20 20:39 Enoxaparin Sodium 40 Mg/0.4 Ml Syringe SC 40 mg 0900,2100 YOSSI Administration Famotidine 20 mg 06/05/20 09:00 06/07/20 20:39 Famotidine/Pf 20 Mg/2ml Vial SLOW IVP 20 mg BID YOSSI Administration Fluoxetine HCl 10 mg 06/05/20 09:00 06/07/20 08:05 Fluoxetine Hcl 10 Mg Cap PO 10 mg DAILY YOSSI Administration Insulin Human Lispro 0 units 06/05/20 01:17 06/08/20 06:31 Humalog 300 Units/3 Ml Vial SC 4 unit .MODERATE SLIDING SC PRN Administration Moderate Correctional Scale Insulin Human Lispro 0 units 06/05/20 01:17 06/07/20 21:19 Humalog 300 Units/3 Ml Vial SC 3 units .BEDTIME SLIDING SC PRN Administration Bedtime Correctional Scale Insulin Human NPH 25 unit 06/05/20 09:00 06/07/20 20:41 Nph, Human Insulin Isophane 300 Unit/3 Ml Vial SC 25 units BID YOSSI Administration Miscellaneous Medication 2 gm 06/06/20 21:00 06/07/20 20:40 Icosapent Ethyl 1 Gm Capsule PO 2 gm BID YOSSI Administration Sodium Chloride 10 ml 06/06/20 21:00 06/07/20 20:43 Flush - Normal Saline 10 Ml Syringe IVF 10 ml Q12HR YOSSI Administration - Exam General Appearance: NAD Neck: no JVD Heart: RRR, no gallops Respiratory: no wheezes, rales, rhonchi Gastrointestinal: soft, no rigidity Extremities: no cyanosis, no clubbing Neurological: no new deficit Hosp A/P - Plan DVT proph w/lovenox Generalized weakness Acute hypoxic respiratory failure due to COVID-19 pneumonia Elevated troponin in indeterminate range diabetes mellitus type 2 Acute kidney injurymultifactorialimproving Hypertension History of CVA with residual weakness Tobacco abuse Plan: Patient is currently on room air. Case discussed with infectious disease. Will check inflammatory markers in a.m. Home home oxygen evaluation. Recheck labs in a.m. Continue aspirin. Outpatient cardiac work-up. Discontinue azithromycin per infectious disease. Continue dexamethasone. Continue Lovenox for DVT prophylaxis. Change Pepcid to p.o. Continue other medications including sliding scale. Patient understands above plan of care
[2020-06-08] MEDS: FLUoxetine HCl 10 MG CAP PO SCH (08:25)
[2020-06-08] MEDS: Dexamethasone 4 MG TAB PO SCH (08:25)
[2020-06-08] MEDS: Icosapent Ethyl 1 GM CAPSULE PO SCH (08:25)
[2020-06-08] MEDS: Aspirin 81 mg Enteric Coated Tablet PO SCH (08:25)
[2020-06-08] MEDS: Enoxaparin Sodium 40 MG/0.4 ML SYRINGE SC SCH (08:26)
[2020-06-08] MEDS ORDERED: NPH, Human Insulin Isophane 300 UNIT/3 ML VIAL SC SCH (09:00)
[2020-06-08] MEDS ORDERED: Famotidine 20 MG TAB PO SCH (09:00)
[2020-06-08 12:38] VITALS: TEMP 98.1
--- NOTE | 2020-06-08 14:06 | DIS ---
DATE OF ADMISSION: 06/05/2020 DATE OF DISCHARGE: 06/08/2020 DISCHARGE DISPOSITION: Assisted living facility. FOLLOWUP: 1. Follow up with Infectious Disease, Dr. Orellana in 1 to 2 weeks. 2. Follow up with primary care physician, Dr. Lunsford in 1 week. 3. Follow up with Cardiology, Dr. David Malcolm after 2 weeks. Please note that the patient was admitted to hospitalist service by mistake. ALLERGIES: THE PATIENT IS ALLERGIC TO PENICILLIN. DISCHARGE MEDICATIONS: 1. Eliquis 2.5 mg b.i.d. for 2 weeks. 2. Dexamethasone 6 mg daily for seven days. 3. Pepcid 20 mg b.i.d. 4. Vitamin C. 5. Zinc. All other home medications were left unchanged. The patient understands the risk associated with anticoagulation. The patient was evaluated on the day of discharge. Denies any new complaints. No chest pain, shortness of breath, or palpitations reported. The patient was also advised to increase NPH dose to 30 units b.i.d. while on dexamethasone. PHYSICAL EXAMINATION: VITAL SIGNS: Vital signs on the day of discharge showed temperature 98.1 with pulse rate of 79, respiration 20, with blood pressure 128/77, with O2 saturation 95% on room air. BRIEF HOSPITAL COURSE: The patient is a 59-year-old male, who was discharged from [facility] with diabetic ketoacidosis as well as recent COVID-19 infection, presented to the emergency room on 05 June 2020 with shortness of breath and generalized weakness. CT angiogram of the chest showed bilateral infiltrate with negative pulmonary embolism. His workup was also consistent with acute kidney injury with creatinine 1.77 and 1.96 on admission. He was monitored on telemetry. He was started on O2 supplementation with nebulizer treatment, empiric antibiotics, and dexamethasone. Later on, antibiotics were discontinued. He is currently on room air. Renal function has resolved. His inflammatory markers on the day of discharge showed ferritin of 937 with CRP of 4.18 and D-dimer of 1.77. Please note that no other inflammatory markers to compare since admission. I discussed with Infectious Disease who agrees with the patient stable for discharge. The patient also had elevated troponins in the indeterminate range. His maximum troponin was 0.294. The patient was evaluated by Cardiology, who recommended outpatient cardiac workup once his COVID-19 resolves. He appears stable for discharge. FINAL DIAGNOSES: 1. Generalized weakness. 2. Acute hypoxic respiratory failure due to COVID-19 pneumonia. 3. Elevated troponin in the indeterminate range. 4. Diabetes mellitus type 2. 5. Acute kidney injury, improved. 6. Hypertension. 7. History of CVA with residual weakness. 8. Ongoing tobacco abuse. The patient was counseled. 9. History of recent hospitalization at [place] for diabetic ketoacidosis. 10. The patient understands the above plan of care. Fall precaution was emphasized while on anticoagulation. Job ID: [id number]
[2020-06-08 17:12] VITALS: BP 154/95
[2020-06-09] MEDS ORDERED: Aspirin 81 mg Enteric Coated Tablet PO SCH (09:00)
--- NOTE | 2020-06-13 01:21 | PQF ---
CLINICAL DOCUMENTATION CLARIFICATION FORM: Dear : Pedro Jaquez Date / Time: 06/13/2020 012 Please exercise your independent, professional judgment in responding to the clarification form. Clinical indicators are provided on the bottom of this form for your review Please check appropriate box(es) to clarify if the following diagnosis has been ruled in our ruled out: NSTEMI [ x ] Ruled in diagnosis [ ] Continue to treat [ x ] Resolved [ ] Ruled out diagnosis [ ] Improving [ ] Cannot rule out diagnosis [ ] Other diagnosis [ ] Unable to determine Physician Signature: Date/Time: For continuity of documentation, please document condition throughout progress notes and discharge summary. Thank You. To be completed by CDI/Coding staff for physician review: Present Clinical Indicators - Signs / Symptoms / Labs Results and Location in Medical Record [X] Troponin I: 0.199 Laboratory 06/05 [X] BP 125/78, Pulse 79, Resp 20, Temp 98.8 Vital signs 06/05 [X] SOB and weakness H&P p1 06/05 Dr Zacarias [X] Found to have elevated troponin H&P p1 06/05 Dr Zacarias [X] Elevated troponin\Non-St elevation myocardial infarction H&P p2 06/05 Dr Zacarias [X] Elevated troponin in indeterminate range diabetes mellitus type 2 PN 06/07 Present Risk Factors Results and Location in Medical Record [X] DM H&P p1 06/05 Dr Zacarias [X] HTN H&P p1 06/05 Dr Zacarias [X] Hx of CVA with weakness H&P p1 06/05 Dr Zacarias [X] Smoker H&P p1 06/05 Dr Zacarias [X] CKD H&P p2 06/05 Dr Zacarias [X] Acute respiratory failure H&P p2 06/05 Dr Zacarias Present Treatments Results and Location in Medical Record [X] Blood chemistry Laboratory 06/05 [X] Aspirin 325 mg oral MAR 06/05 [X] Zestril 40 mg oral OCT 22 [X] IVF NS 1L OCT 22 [X] Cardiology consult Consult Dr Schmidt 06/05 [facility] Signature: Magdalene Florencia Conradmedardogwen Phone #: ext [phone] Date/Time: 06/13/2020 012 This is a permanent part of the Medical Record [facility]
== END 2020-06-08 19:10 | disposition home or self-care (01) | DRG 177 ==
LOC: 2SW 06-05 00:57 → OBSVTOIN 06-05 01:53
PROVIDERS: ADMIT Internal Medicine; ATTEND Internal Medicine
PROC: 8E0ZXY6 Isolation (ICD-10-PCS; principal; 2020-06-05)
PROC: 3E02340 Introduction of Influenza Vaccine into Muscle, Percutaneous Approach (ICD-10-PCS; 2020-06-06)
DX: U07.1 COVID-19 (principal); J96.01 Acute respiratory failure with hypoxia; J12.89 Other viral pneumonia; I21.4 Non-ST elevation (NSTEMI) myocardial infarction; N17.9 Acute kidney failure, unspecified; I69.354 Hemiplegia and hemiparesis following cerebral infarction affecting left non-dominant side; F17.210 Nicotine dependence, cigarettes, uncomplicated; F32.9 Major depressive disorder, single episode, unspecified; E11.65 Type 2 diabetes mellitus with hyperglycemia; N18.9 Chronic kidney disease, unspecified; E11.22 Type 2 diabetes mellitus with diabetic chronic kidney disease; I12.9 Hypertensive chronic kidney disease with stage 1 through stage 4 chronic kidney disease, or unspecified chronic kidney disease; Z23 Encounter for immunization; Z90.49 Acquired absence of other specified parts of digestive tract; Z88.0 Allergy status to penicillin; Z79.899 Other long term (current) drug therapy; Z79.82 Long term (current) use of aspirin; Z79.84 Long term (current) use of oral hypoglycemic drugs
CPT/HCPCS: 36415; 36416; 80048; 80053; 80061; 82728; 83735; 85025; 85379; 86140; 90471; 90662; 94760; G0008; J0456; J1650; J1815; J7050; J8540; S0028